=== PATIENT | female | born 1990 ===

== ENCOUNTER 2016-08-09 00:04 | Emergency (ER) | payer OTHER ==
[2016-08-09] MEDS ORDERED: DiphenhydrAMINE 50 mg/ml Inj IVP STA (00:55)
[2016-08-09] MEDS ORDERED: Sodium Chloride 0.9% 500 ML IV STA (00:55)
[2016-08-09] MEDS ORDERED: DiphenhydrAMINE 50 mg/ml Inj ONE (00:57)
[2016-08-09] MEDS ORDERED: Sodium Chloride 0.9% 500 ML IV ONE (01:04)
[2016-08-09] MEDS ORDERED: Albuterol-Ipratrop 3 mg / 0.5 (3 ml) UD INH STA (01:36)
[2016-08-09] MEDS ORDERED: Albuterol-Ipratrop 3 mg / 0.5 (3 ml) UD ONE (01:42)
[2016-08-09 01:54] VITALS: BP 117/76; PULSE 95; RESP 20; TEMP 97.8; O2SAT 98
--- NOTE | 2016-08-09 02:07 | C.PDOC ---
History Of Present Illness Patient is a 26 year old female who presents to the ER with a complaint of a skin rash, itching to throat and SOB after [place] a strawberry from a farm on [place]. Patient reports taking OTC medication with no relief; patient also saw PMD who gave her a questionable allergy shot with no relief. Denies fever, chills or difficulty swallowing. Time Seen by Provider: 08/09/16 00:33 Chief Complaint (Nursing): Abnormal Skin Integrity History Per: Patient History/Exam Limitations: no limitations Onset/Duration Of Symptoms: Days (Since Saturday) Current Symptoms Are (Timing): Still Present Quality Of Symptoms: Itching Recent travel outside of the [place]: No Past Medical History Reviewed: Historical Data, Nursing Documentation, Vital Signs Vital Signs: Last Vital Signs Temp 97.8 F 08/09/16 01:53 Pulse 95 H 08/09/16 01:53 Resp 20 08/09/16 01:53 BP 117/76 08/09/16 01:53 Pulse Ox 98 08/09/16 05:53 - Medical History PMH: No Chronic Diseases Surgical History: No Surg Hx Family History: States: Unknown Family Hx - Social History Hx Alcohol Use: No Hx Substance Use: No - Immunization History Hx Tetanus Toxoid Vaccination: No Hx Influenza Vaccination: No Hx Pneumococcal Vaccination: No Review Of Systems Constitutional: Negative for: Fever, Chills ENT: Positive for: Other (Throat itching. No difficulty swallowing.) Respiratory: Positive for: Shortness of Breath Skin: Positive for: Rash Physical Exam - Physical Exam Appears: Non-toxic Skin: Warm, Dry, Rash (Large areas of hives and urticaria diffusely) Head: Atraumatic, Normacephalic Oral Mucosa: Moist Tongue: Normal Appearing, No Swelling Lips: Normal Appearing, No Swelling Throat: Normal, No Erythema, No Exudate Neck: Normal, Supple Chest: Symmetrical, No Tenderness Cardiovascular: Rhythm Regular, No Murmur Respiratory: Normal Breath Sounds, No Rales, No Rhonchi, No Stridor, No Wheezing Gastrointestinal/Abdominal: Soft, No Tenderness Neurological/Psych: Oriented x3, Normal Speech, Normal Cognition ED Course And Treatment O2 Sat by Pulse Oximetry: 98 (Room air) Pulse Ox Interpretation: Normal Progress Note: Duoneb, benadryl, pepcid, solumedrol and IV fluids administered. Patient instructed with proper precautions to take and to return to ER immediately if symptoms worsen. Disposition Counseled Patient/Family Regarding: Diagnosis, Need For Followup, Rx Given - Disposition Referrals: [facility] [Outside] Disposition: HOME/ ROUTINE Disposition Time: 02:04 Condition: STABLE Additional Instructions: Increase fluids Take meds as prescribed Return to ER if worse Prescriptions: DiphenhydrAMINE [Benadryl] 50 mg PO Q6H #20 cap Famotidine [Pepcid] 20 mg PO DAILY #7 tab predniSONE [Prednisone] 40 mg PO DAILY #10 tab Instructions: Urticaria (ED) Forms: Work Excuse - Clinical Impression Clinical Impression: Allergic urticaria - Scribe Statement The provider has reviewed the documentation as recorded by the Scribraymon Coleman All medical record entries made by the Marioibraymon were at my direction and personally dictated by me. I have reviewed the chart and agree that the record accurately reflects my personal performance of the history, physical exam, medical decision making, and the department course for this patient. I have also personally directed, reviewed, and agree with the discharge instructions and disposition.
== END 2016-08-09 02:11 | disposition home or self-care (01) ==
LOC: C.ER 00:04
DX: L50.0 Allergic urticaria (principal)
CPT/HCPCS: 96361; 96374; 96375; 99283; J1200; J2930; J7040

== ENCOUNTER 2016-08-09 22:36 | Emergency (ER) | payer OTHER ==
[2016-08-09] MEDS ORDERED: Albuterol 0.083% Inhal Sol (2.5 mg/3 mL) UD INH STA (23:03)
[2016-08-09 23:04] VITALS: O2SAT 100
[2016-08-09] MEDS ORDERED: Albuterol 0.083% Inhal Sol (2.5 mg/3 mL) UD ONE (23:31)
--- NOTE | 2016-08-09 23:53 | C.PDOC ---
History Of Present Illness A 26 y/o female was treated for an allergic reaction to strawberries yesterday and was discharge last night with meds. Pt now returned today c/o SOB. Pt is compliant with her meds that were prescribed. Pt denies cough, fever, chills, nausea, vomiting, or any other complaints. Time Seen by Provider: 08/09/16 23:03 Chief Complaint (Nursing): Shortness Of Breath History Per: Patient History/Exam Limitations: no limitations Onset/Duration Of Symptoms: Days Current Symptoms Are (Timing): Still Present Initiating Event: Possible Allergic Reaction (Strawbarries) Severity: Mild Recent travel outside of the [place]: No Additional History Per: Patient Past Medical History Reviewed: Historical Data, Nursing Documentation, Vital Signs Vital Signs: Last Vital Signs Temp 97.3 F L 08/10/16 00:04 Pulse 77 08/10/16 00:04 Resp 17 08/10/16 00:04 BP 122/82 08/10/16 00:04 Pulse Ox 100 08/10/16 01:22 Family History: States: Unknown Family Hx - Social History Hx Alcohol Use: No Hx Substance Use: No - Immunization History Hx Tetanus Toxoid Vaccination: No Hx Influenza Vaccination: No Hx Pneumococcal Vaccination: No Review Of Systems Except As Marked, All Systems Reviewed And Found Negative. Constitutional: Negative for: Fever, Chills Respiratory: Positive for: Shortness of Breath. Negative for: Cough Gastrointestinal: Negative for: Nausea, Vomiting Physical Exam - Physical Exam Appears: Non-toxic, No Acute Distress Skin: Warm, Dry, Rash (Scattered urticaria) Head: Atraumatic, Normacephalic Eye(s): bilateral: Normal Inspection Throat: Normal, No Exudate Chest: Symmetrical Cardiovascular: Rhythm Regular, No Murmur Respiratory: Decreased Breath Sounds (Bilaterally), No Accessory Muscle Use, No Rales, No Rhonchi, No Wheezing Gastrointestinal/Abdominal: Soft, No Tenderness Neurological/Psych: Oriented x3, Normal Speech, Normal Cognition ED Course And Treatment O2 Sat by Pulse Oximetry: 100 (RA) Pulse Ox Interpretation: Normal Medical Decision Making Medical Decision Making: Impression: 26 y/o female c/o SOB today after an allergic reaction to strawberries yesterday. Plans: -Albuterol -Nebulizer treatment Pt treated with nebulizer and albuterol with improvements in lung sounds. Pt notes feeling better and was discharge. Pt was instructed to follow up with PMD within 1-2 days if symptoms persists. Disposition Counseled Patient/Family Regarding: Diagnosis, Need For Followup - Disposition Referrals: Non [facility] Provider, [Primary Care Provider] - Disposition: HOME/ ROUTINE Disposition Time: 23:51 Condition: GOOD Additional Instructions: Continue with the meds you got last night Use the inhaler 2 puffs 4 times a day to start that scott off [employer] and follow up with PCP Prescriptions: Albuterol HFA [Ventolin HFA 90 mcg/actuation (8 g)] 1 puff IH QID PRN #1 puff PRN Reason: Cough Inhaler, Assist Devices [Space Chamber Plus] 1 each MC PRN #1 spacer Instructions: Urticaria (ED) - Clinical Impression Clinical Impression: Allergic urticaria, Dyspnea - Scribe Statement The provider has reviewed the documentation as recorded by the Scribe Annie parekh All medical record entries made by the Scribe were at my direction and personally dictated by me. I have reviewed the chart and agree that the record accurately reflects my personal performance of the history, physical exam, medical decision making, and the department course for this patient. I have also personally directed, reviewed, and agree with the discharge instructions and disposition.
[2016-08-10 00:05] VITALS: BP 122/82; PULSE 77; RESP 17; TEMP 97.3
== END 2016-08-10 00:17 | disposition home or self-care (01) ==
LOC: C.ER 22:36 → SUPCPDRO 22:36 → C.ER 08-10 00:17
DX: R06.02 Shortness of breath (principal); L50.0 Allergic urticaria